=== PATIENT | male | born 1955 | race Caucasian/White ===

== ENCOUNTER 2018-10-04 13:25 | Emergency (ER) | payer SELFPAY ==
[~2018-10-04 13:25] MED LIST: Iopamidol 370 76% 125 ML VIAL FS ONE; Sodium Chloride 0.9% 100 ML BAG ONE
[2018-10-04 13:51] LABS: #Basophils 0.1 thou/uL (0.0-0.2); #Eosinphils 0.1 thou/uL (0.0-0.7); #Lymphocytes 1.9 thou/uL (1.20-3.40); #Monocytes 0.7 thou/uL (0.11-0.59); #Neutrophils 11.3 thou/uL (1.40-6.50); %Basophils 0.4 % (0.0-1.0); %Eosinophils 0.4 % (0.0-10.0); %Lymphocytes 13.6 % (21.0-51.0); %Neutrophils 80.7 % (42.0-75.0); Hemoglobin 18.1 g/dL (14.0-18.0); Mean Corpuscular Hemoglobin 31.1 pg (27.0-31.0); Mean Corpuscular Volume 88.8 fL (78.0-98.0); Mean Platelet Volume 7.3 fL (7.4-10.4); Platelet Count 238 thou/uL (130-400); RBC Distribution Width 11.8 % (11.5-14.5); Red Blood Cell (RBC) Count 5.83 mill/uL (4.70-6.10)
[2018-10-04 14:12] LABS: ALT (SGPT) 21 U/L (8-55); AST (SGOT) 30 U/L (5-34); Acetaminophen Less than 6.0 mcg/mL (10.0-30.0); Alcohol Less than 10 mg/dL (Less than 10); Alkaline Phosphatase 119 U/L (40-150); Anion Gap 17 mmol/L (10-20); BUN (Urea Nitrogen) 12 mg/dL (8.4-25.7); Bilirubin, Total 1.1 mg/dL (0.2-1.2); Calc. Creatinine Clearance 0 mL/min (70-130); Calcium 10.2 mg/dL (7.8-10.44); Carbon Dioxide 24 mmol/L (23-31); Chloride 100 mmol/L (98-107); Estimated GFR-MDRD 71; Globulin 4.3 g/dL (2.4-3.5); Glucose 107 mg/dL (80-115); Protein, Total 9.3 g/dL (5.8-8.1); Salicylate Less than 8.0 mg/dL (15.0-30.0); Sodium 138 mmol/L (136-145)
--- NOTE | 2018-10-04 15:03 | CT ---
CT BRAIN WITHOUT CONTRAST: Date: 10/04/18 HISTORY: Diplopia. COMPARISON: None. FINDINGS: Extensive microvascular ischemic changes. No large volume loss of [place]-white matter differentiation. No hemorrhage. No midline shift or mass effect. Calvarium is intact. Paranasal sinuses and mastoids are clear. IMPRESSION: Extensive chronic microvascular ischemic changes. No acute hemorrhage. POS: [facility]
--- NOTE | 2018-10-04 15:45 | CT ---
CT ARTERIOGRAM HEAD WITH IV CONTRAST AND 3D MIP IMAGING CT ARTERIOGRAM NECK WITH IV CONTRAST AND 3D MIP IMAGING CT BRAIN WITH IV CONTRAST: Date: 10/04/18 COMPARISON: Noncontrast study from earlier on the same date. FINDINGS: There is good flow within each internal carotid and vertebral system. At the right carotid bifurcation, there is moderate narrowing of the external carotid artery. Interna l carotid artery is widely patent. On the left, there is minimal calcification. The left internal carotid artery is widely patent. Intracranially, there is calcification at each carotid siphon. Tortuosity of the vessels. Good arteri al flow throughout each cerebral system. [place] is intact. No abnormal areas of contrast enhancement are apparent. IMPRESSION: 1. No acute vascular abnormalities are demonstrated. No acute intracranial abnormalities are demonst rated. 2. Atherosclerosis. POS: [facility]
--- NOTE | 2018-10-04 15:53 | RAD ---
CHEST ONE VIEW: HISTORY: Hypertension. Diplopia. COMPARISON: 03/31/2008 FINDINGS: The cardiac silhouette is magnified by projection. The pulmonary vasculature is at the upper limits of normal. The mediastinum is midline. No lobar consolidation or evidence of pneumothorax. court monitor leads overly the chest. IMPRESSION: No active cardiopulmonary abnormalities demonstrated. POS: [facility]
== END 2018-10-04 15:31 | disposition short-term general hospital (02) ==
LOC: MADERS 13:25
DX: H53.2 Diplopia (principal); F17.210 Nicotine dependence, cigarettes, uncomplicated; I10 Essential (primary) hypertension; Z79.899 Other long term (current) drug therapy
CPT/HCPCS: 36416; 70450; 70496; 70498; 71045; 80053; 80307; 82550; 83605; 84484; 85025; 93005; 96365; 96366; J7050